=== PATIENT | female | born 1970 | race Caucasian/White ===

== ENCOUNTER 2018-04-20 13:37 | Outpatient (CLI) | payer BC | END 2018-04-20 13:38 | disposition home or self-care (01) | LOC: BICMAMMO 13:37 | PROVIDERS: ATTEND Family Medicine | DX: Z12.31 Encounter for screening mammogram for malignant neoplasm of breast (principal); R92.1 Mammographic calcification found on diagnostic imaging of breast; Z80.3 Family history of malignant neoplasm of breast | CPT/HCPCS: 77063; 77067 ==

== ENCOUNTER 2020-08-23 18:29 | Emergency (ER) | payer OTHER, BC ==
[2020-08-23] MEDS ORDERED: Fentanyl 100 MCG/2 ML VIAL ONE (18:59)
[2020-08-23] MEDS ORDERED: Amoxicillin/Potassium Clav 875 MG TAB ONE (18:59)
[2020-08-23] MEDS ORDERED: Boostrix 0.5 ML (Tdap) VIAL ONE (18:59)
[2020-08-23] MEDS ORDERED: Lorazepam 2 MG/ML VIAL ONE (18:59)
[2020-08-23] MEDS ORDERED: Ketorolac Tromethamine 30 MG/ML VIAL ONE (18:59)
[2020-08-23] MEDS ORDERED: Lidocaine 1% w/Epinephrine 1:100K 20 ML VIAL ONE (19:02)
[2020-08-23] MEDS ORDERED: Bacitracin 1 PK ONE (20:22)
== END 2020-08-23 20:20 | disposition home or self-care (01) ==
LOC: ERS 18:29
DX: S61.451A Open bite of right hand, initial encounter (principal); S61.411A Laceration without foreign body of right hand, initial encounter; E03.9 Hypothyroidism, unspecified; W54.0XXA Bitten by dog, initial encounter
CPT/HCPCS: 90471; 90715; 96374; 96375; J1885; J2060; J3010

== ENCOUNTER 2022-06-10 14:47 | Outpatient (CLI) | payer BC | END 2022-06-10 14:48 | disposition home or self-care (01) | LOC: BICMAMMO 14:47 | PROVIDERS: ATTEND Family Medicine | DX: Z12.31 Encounter for screening mammogram for malignant neoplasm of breast (principal) | CPT/HCPCS: 77063; 77067 ==